=== PATIENT | female | born 1995 | race Caucasian/White ===

== ENCOUNTER 2021-03-11 17:52 | Emergency (ER) | payer OTHER ==
[~2021-03-11 17:52] MED LIST: ASPIRIN CHEWABL81 MG PO; CIPRO500 MG PO; COLACE 100MG C100 MG PO; FEOSOL325 MG PO; IBUPROFEN600 MG PO; PRENATAL VITAM1 EAC8 PO; ZOFRAN ODT4 MG PO
[2021-03-11] MEDS ORDERED: VENTOLIN HFA 66.7 GM INH (21:54)
[2021-03-11] MEDS ORDERED: FLOVENT HFA10.6 GM INH (21:56)
[2021-03-11] MEDS ORDERED: TESSALON PERLE100 MG PO (21:56)
== END 2021-03-11 22:20 | disposition home or self-care (01) ==
LOC: ER1 17:52
DX: U07.1 COVID-19 (principal)
CPT/HCPCS: 0240U; 87081; 87880; 99283